=== PATIENT | male | born 1990 | race Caucasian/White ===

== ENCOUNTER 2016-08-19 17:55 | Inpatient (IN) ==
[2016-08-19] MEDS ORDERED: 0.9 % Sodium Chloride 1,000 ML IVC ONE (18:36)
[2016-08-19] MEDS ORDERED: *HR* HYDROmorphone (PF) 1 MG/ML SYRINGE IVP ONE ×2 (19:00→20:32)
[2016-08-19] MEDS ORDERED: Ondansetron 4 MG/2 ML VIAL IVP ONE ×2 (19:00→20:32)
[2016-08-19] MEDS ORDERED: Lidocaine/EPI 1:100k 2% 20 ML VIAL INFILT ONE (19:23)
--- NOTE | 2016-08-19 19:24 | Emergency Department Note ---
Disposition Clinical Impression: Meningismus Disposition: Admitted As Inpatient Condition: Good Referrals: Jesika Sagastume [Primary Care Provider] - Forms: ED Satisfaction Letter General Adult HPI - General Chief complaint: ED Headache Stated complaint: tick bite- possible meningitis Time Seen by Provider: 08/19/16 18:12 Source: patient Limitations: no limitations Nursing Notes Reviewed: Yes Vital Signs Reviewed: Yes - History of Present Illness HPI Narrative: Patient here for evaluation of fever and neck pain. Patient states that he was bitten by a tick on August 03. Patient removed the tick the next day. Patient was working outside the day previously. Patient awoke with tick in his left axilla that over the next several days spread to cause a red erythematous rash. Patient began having headaches and fever this last Friday and they have worsened in severity until yesterday. TMAX at home was 104. He had a rash that started on and then unable to get out of bed secondary to pain and stiffness on Friday. He was evaluated at another emergency department yesterday where they had concern for possible Lyme's disease. Tests were ordered and the patient was given doxycycline and discharged home. The patient's symptoms have not improved since this time the patient is return here secondary to severe pain. Upon exam the patient has severe meningeal signs is he is unwilling to move his neck at all and has pain with slight flexion of his hips. Patient is not altered in any way and is able to hold on a conversation without difficulty. This time the patient's complaints only include pain. Patient did have a fever prior to arrival but he has been taking a lot of ibuprofen at home. Patient states that he was unable to move and get out of bed on Friday but continue to rest at home secondary to thinking he would eventually get over it. Pain Scale: 10 - Related Data Home Medications Medication Instructions Recorded Confirmed Acetaminophen [Tylenol] 1,000 mg PO BID PRN 08/19/16 08/19/16 Doxycycline 100 mg PO BID 08/19/16 08/19/16 Ibuprofen [Motrin] 800 mg PO TID PRN 08/19/16 08/19/16 Allergies Allergy/AdvReac Type Severity Reaction Status Date / Time No Known Allergies Allergy Verified 08/19/16 17:57 All systems ED: reviewed and negative except as stated. Constitutional: Reports: fever, weakness Respiratory: Reports: dyspnea ("feels like breathing cold air even tho its warm outside") Gastrointestinal: Reports: nausea. Denies: abdominal pain, vomiting, diarrhea Musculoskeletal: Reports: neck pain, myalgia Integumentary: Reports: rash Neurological: Reports: headache, weakness, paresthesias (on in the upper extremities) Psychiatric: Denies: anxiety, depression Endocrine: Denies: fatigue, heat or cold intolerance Past Medical History - Past Medical History Medical history: Reports: no medical history Psychiatric history: Reports: no psych history - Social History Smoking Status: Never smoker Smokeless Tobacco Status: No Alcohol use: Reports: occasionally Drug use: Reports: none Physical Exam - General Limitations: no limitations General appearance: alert, in no apparent distress - Head Head exam: atraumatic, normocephalic - Eye Eye exam: Present: normal appearance, PERRL, EOMI - ENT ENT exam: normal exam, mucous membranes dry - Neck Neck exam: Present: tenderness, meningismus. Absent: lymphadenopathy - Chest Chest inspection: Present: normal inspection, rash (slight erythema in right axilla - mostly resolved.). Absent: symmetric chest wall rise, tenderness - Respiratory Respiratory exam: Present: normal lung sounds bilaterally. Absent: respiratory distress, wheezes - Cardiovascular Cardiovascular exam: Present: regular rate, normal rhythm - Abdominal Exam Abdominal exam: Present: soft, Non-Tender - Extremities Exam Extremities exam: Present: normal inspection. Absent: pedal edema - Back Exam Back exam: Present: tenderness, muscle spasm, paraspinal tenderness - Neurological Exam Neurological exam: Present: alert, oriented X3, CN II-XII intact, motor sensory deficit (weakness in extremities 2/2 pain) - Psychiatric Psychiatric exam: Present: normal affect, normal mood - Skin Skin exam: Present: warm, dry, other (slight erythema to left axilla - mostly resolved. ) Course - Reevaluation(s) Reevaluation #1: Lumbar puncture performed per procedure note. Patient tolerated the procedure well. Patient is awake and talking and wanting to eat food. Meal tray ordered. - Consultations Consultation #1: Discussed with Dr. Augustin neurology. He recommends contacting ID for further discussion about possible etiologies. Consultation #2: Discussed with Dr. Stephens, infectious disease. He is concerned that the patient may have Ehrlichiosis vs Anaplama vs Other. Recommend sending IgG and IgM for both of these. He would not be surprised to see leukopenia or thrombocytopenia or elevated LFTs. Recommends continuing with lumbar puncture. Recommend giving doxycycline 100 mg by mouth twice a day until 3 days after symptoms resolve. He is happy to consult on this case with the hospitalist service. The patient does not need isolation unless the lumbar puncture is grossly abnormal. Consultation #3: Discussed with the hospitalist, Dr. Thompson. Pt accepted for admission. Vital Signs Temperature 97.5 F L 08/19/16 17:57 Pulse Rate 73 08/19/16 17:57 Respiratory Rate 16 08/19/16 17:57 Blood Pressure 123/77 08/19/16 17:57 O2 Sat by Pulse Oximetry 96 08/19/16 17:57 Temperature 97.5 F L 08/19/16 17:57 Pulse Rate 73 08/19/16 20:28 Respiratory Rate 20 08/19/16 20:28 Blood Pressure 141/80 08/19/16 20:28 O2 Sat by Pulse Oximetry 98 08/19/16 20:28 Oxygen Delivery Oxygen Delivery Room Air Procedures - Lumbar Puncture Consent Obtained: written consent Time Out Performed: Yes Patient Position: left lateral decubitus Local Anesthetic: lidocaine 2%, with epi Amount of anesthesia used (mL): 10 Spinal Needle Gauge: 22G Interspace Used: L3-L4 Fluid Initially Obtained: clear Additional Comments: 2 attempts were made in the left lateral decubitus were unsuccessful. The patient was moved to the sitting position where it was successful on the second attempt. Complications: none, traumatic tap Medical Decision Making - Lab Data Result diagrams: 08/19/16 19:20 08/19/16 19:20 Lab Results 08/19/16 08/19/16 08/19/16 Range/Units 19:20 19:20 19:20 WBC 11.3 H (4.3-11.1) K/mcL RBC 4.72 (4.19-5.50) M/mcL Hgb 14.0 (12.9-16.9) g/dL Hct 40.0 (37.5-50.1) % MCV 84.7 (83.0-100.0) fL MCH 29.7 (28.0-33.3) pg MCHC 35.0 (31.6-35.5) g/dL RDW 12.3 (11.5-14.5) % Plt Count 215 (140-400) K/mcL MPV 8.1 L (9.4-12.4) fL Immature Gran % 0.3 (0-4) % Seg Neutrophils % 65.8 % Lymphocytes % 22.2 % Monocytes % 8.4 % Eosinophils % 2.9 % Basophils % 0.4 % Neutrophils # 7.4 (1.6-8.9) K/mcL Lymphocytes # 2.5 (0.6-4.6) K/mcL Monocytes # 1.0 (0.0-1.3) K/mcL Eosinophils # 0.3 (0.0-0.6) K/mcL Basophils # 0.1 (0.0-0.2) K/mcL PT 12.7 H (9.4-12.1) Seconds INR 1.2 APTT 31.4 (26.0-36.0) Seconds Sodium 140 (136-145) mEq/L Potassium 3.8 (3.5-4.5) mEq/L Chloride 107 (98-109) mEq/L Carbon Dioxide 24 (19-29) mEq/L BUN 10 (8-26) mg/dL Creatinine 0.93 (0.72-1.25) mg/dL Est GFR ( Amer) > 60 (> 60) Est GFR (Non-Af Amer) > 60 (> 60) BUN/Creatinine Ratio 11 (6-26) Glucose 89 (70-99) mg/dL Calculated Osmolality 289 (280-300) Calcium 9.3 (8.6-10.8) mg/dL Total Bilirubin 0.7 (0.2-1.2) mg/dL Direct Bilirubin 0.3 (0.0-0.5) mg/dL Indirect Bilirubin 0.4 (0.0-1.2) mg/dL AST 18 (5-34) Units/L ALT 23 (0-55) Units/L Alkaline Phosphatase 79 (38-126) Units/L Creatine Kinase 64 (30-200) Units/L Troponin I (0-0.03) ng/mL Serum Total Protein 7.5 (6.0-8.3) g/dL Albumin 3.5 (3.5-5.0) g/dL Globulin 4.0 H (2.4-3.5) g/dL Albumin/Globulin Ratio 0.9 L (1.1-2.2) CSF Volume mL CSF Appearance (Clear) CSF Color (Colorless) CSF RBC (0.000 - 0.002) M/mcL CSF Tot Nucleated Cells (0-5) TNC/mcL CSF Glucose (40-70) mg/dL CSF Xanth Comm (Not Observe) CSF Total Protein (15-45) mg/dL 08/19/16 08/19/16 Range/Units 19:20 20:15 WBC (4.3-11.1) K/mcL RBC (4.19-5.50) M/mcL Hgb (12.9-16.9) g/dL Hct (37.5-50.1) % MCV (83.0-100.0) fL MCH (28.0-33.3) pg MCHC (31.6-35.5) g/dL RDW (11.5-14.5) % Plt Count (140-400) K/mcL MPV (9.4-12.4) fL Immature Gran % (0-4) % Seg Neutrophils % % Lymphocytes % % Monocytes % % Eosinophils % % Basophils % % Neutrophils # (1.6-8.9) K/mcL Lymphocytes # (0.6-4.6) K/mcL Monocytes # (0.0-1.3) K/mcL Eosinophils # (0.0-0.6) K/mcL Basophils # (0.0-0.2) K/mcL PT (9.4-12.1) Seconds INR APTT (26.0-36.0) Seconds Sodium (136-145) mEq/L Potassium (3.5-4.5) mEq/L Chloride (98-109) mEq/L Carbon Dioxide (19-29) mEq/L BUN (8-26) mg/dL Creatinine (0.72-1.25) mg/dL Est GFR ( Amer) (> 60) Est GFR (Non-Af Amer) (> 60) BUN/Creatinine Ratio (6-26) Glucose (70-99) mg/dL Calculated Osmolality (280-300) Calcium (8.6-10.8) mg/dL Total Bilirubin (0.2-1.2) mg/dL Direct Bilirubin (0.0-0.5) mg/dL Indirect Bilirubin (0.0-1.2) mg/dL AST (5-34) Units/L ALT (0-55) Units/L Alkaline Phosphatase (38-126) Units/L Creatine Kinase (30-200) Units/L Troponin I 0.01 (0-0.03) ng/mL Serum Total Protein (6.0-8.3) g/dL Albumin (3.5-5.0) g/dL Globulin (2.4-3.5) g/dL Albumin/Globulin Ratio (1.1-2.2) CSF Volume 3.5 mL CSF Appearance Clear (Clear) CSF Color Colorless (Colorless) CSF RBC < 0.002 (0.000 - 0.002) M/mcL CSF Tot Nucleated Cells 10 H (0-5) TNC/mcL CSF Glucose 54 (40-70) mg/dL CSF Xanth Comm Not Observed (Not Observe) CSF Total Protein 41 (15-45) mg/dL Critical Care Time Critical Care Time: Yes Total Critical Care Time: 35 Attestation: Critical care time spent in medical management as well as consultation with infectious disease and hospitalist. Also consult was made to neurology. Attestation Statement - Attestation Attestation: I examined this patient and my medical decision-making was reviewed with the [employer]'/PA/Advanced Practice Nurse/Resident Physician. I agree with the documented findings, disposition and treatment plan as described except to the extent set forth below. I was able to help with Dr. Chandra in the lumbar puncture. Patient tolerated procedure well with no consultations. see procedure note.
[2016-08-19 19:30] LABS: Basophils # 0.1 K/mcL (0.0-0.2); Basophils % 0.4 %; Eosinophils # 0.3 K/mcL (0.0-0.6); Eosinophils % 2.9 %; Immature Granulocytes % 0.3 % (0-4); Lymphocytes # 2.5 K/mcL (0.6-4.6); Lymphocytes % 22.2 %; Mean Corpuscular Hemoglobin 29.7 pg (28.0-33.3); Mean Corpuscular Volume 84.7 fL (83.0-100.0); Mean Platelet Volume 8.1 fL (9.4-12.4); Monocytes % 8.4 %; Neutrophils # 7.4 K/mcL (1.6-8.9); Platelet Count 215 K/mcL (140-400); Red Blood Count 4.72 M/mcL (4.19-5.50); Red Cell Distribution Width 12.3 % (11.5-14.5); Segmented Neutrophils % 65.8 %
[2016-08-19 19:43] LABS: INR 1.2; Prothrombin Time 12.7 Seconds (9.4-12.1)
[2016-08-19 19:45] LABS: Activated Partial Thrombo Time 31.4 Seconds (26.0-36.0)
[2016-08-19 19:48] LABS: Alanine Aminotransferase 23 Units/L (0-55); Albumin 3.5 g/dL (3.5-5.0); Albumin/Globulin Ratio 0.9 (1.1-2.2); Alkaline Phosphatase 79 Units/L (38-126); Aspartate Amino Transferase 18 Units/L (5-34); BUN/Creatinine Ratio 11 (6-26); Bilirubin,Direct 0.3 mg/dL (0.0-0.5); Bilirubin,Indirect 0.4 mg/dL (0.0-1.2); Bilirubin,Total 0.7 mg/dL (0.2-1.2); Blood Urea Nitrogen 10 mg/dL (8-26); Calcium 9.3 mg/dL (8.6-10.8); Carbon Dioxide 24 mEq/L (19-29); Chloride 107 mEq/L (98-109); Creatine Kinase 64 Units/L (30-200); Glucose 89 mg/dL (70-99); Osmolality,Calculated 289 (280-300); Potassium 3.8 mEq/L (3.5-4.5); Sodium 140 mEq/L (136-145); Total Protein 7.5 g/dL (6.0-8.3); eGFR For African Americans > 60 (> 60); eGFR For Non-African Americans > 60 (> 60)
[2016-08-19] MEDS ORDERED: Doxycycline 100 MG CAPSULE PO ONE (20:26)
[2016-08-19 20:41] LABS: Red Blood Cell,CSF < 0.002 M/mcL
[2016-08-19 21:14] LABS: Glucose,CSF 54 mg/dL (40-70); Total Protein,CSF 41 mg/dL (15-45)
[2016-08-19 21:16] LABS: Appearance,CSF Clear (Clear)
[2016-08-19 21:34] LABS: Lymphocytes,CSF 42.9 %; Monocytes,CSF 14.3 %
[2016-08-20] MEDS ORDERED: *HR* HYDROmorphone (PF) 1 MG/ML SYRINGE IVP PRN (00:43)
[2016-08-20] MEDS ORDERED: Naloxone 0.4 MG/ML INJ IVP PRN (00:43)
[2016-08-20] MEDS ORDERED: Acetaminophen 325 MG TABLET PO PRN (00:43)
[2016-08-20] MEDS: Ondansetron 4 MG/2 ML VIAL IVP PRN ×3 (01:07→17:33)
--- NOTE | 2016-08-20 01:59 | Internal Med History&Physical ---
<Kevin Kenyon - Last Filed: 08/20/16 01:51> Date of Encounter: 08/20/16 Time of Encounter: 01:52 Assessment and Plan (1) Meningitis Current visit: Yes Status: Acute Likely related to tick borne illness with Lyme disease, ehrlichiosis, anaplasmosis at the top of the differential. Lumbar puncture was performed that shows 10 nucleated cells with 42.9% neutrophils and 42.9% lymphocytes, glucose and total protein were normal. CSF cultures are pending serologic testing for Lyme disease, ehrlichiosis, anaplasmosis have been ordered. Head CT is normal. He had been started on doxycycline 100 mg twice a day. We will continue this. Infectious disease Society of [place] guidelines do recommend Rocephin 2 g daily for early disseminated Lyme's disease with neurologic involvement so this is been initiated. Given the possibility of disseminated Lyme and patient complaints of chest pain and EKG was performed which showed normal sinus rhythm with no AV block. We will also treat the patient's pain symptomatically. Infectious disease has been consulted. (2) DVT prophylaxis Current visit: Yes Status: Acute Heparin 5000 units subcutaneous twice a day Internal Medicine - H&P: HPI Chief complaint: Neck Stiffness Admitted From: Emergency Dept Plans for Post Hospital Care: Home History of present illness: Mr. Ruiz is a 25 year old male with no significant medical history presents with fever, headache, neck stiffness. Patient states that on August 03 in the evening he was outside cleaning brush between 5 and 7 PM. The next morning at approximately 7 AM he noticed a tick in his axillary area which he removed. He noticed a red circular rash around the area at that time, denies bulls-eye looking rash. Patient states that his rash persisted and last Friday he developed a headache. On Friday his headache continued and the pain was also in his neck. On and Friday his symptoms persisted and he also had dyspnea, chest pain, and back pain. Patient states on Friday when he woke up he felt extremely stiff all over and felt like he could not move without severe pain. Patient states he was taking ibuprofen regularly to help with these symptoms. Patient had similar symptoms on Friday and went to an outside emergency department and was given doxycycline. Patient states once he started taking the doxycycline he discontinued taking ibuprofen and developed a fever of 104. Patient did not feel any better today and presented to our emergency department. Patient continues to report significant neck pain and stiffness, headache, photophobia. Patient reports that he has had tick bites 100s of times and never had similar symptoms. He reports his most recent tick bite was about a month ago. He denies any sick contacts or travel. Past Med Surg Social Fam HX - Past Medical History Medical history: no medical history Psychiatric history: no psych history - Past Surgical History Surgical History: no surgical history - Social History Smoking Status: Never smoker Smokeless Tobacco Status: No Alcohol use: occasionally Drug use: none - Family History Mother Hx Family Cancer: Yes (ovarian) Father Hx Family Neurologic Disorders: Yes (jenna) Internal Medicine - H&P: Meds Acetaminophen [Tylenol] 1,000 mg PO BID PRN 08/19/16 [History] Doxycycline 100 mg PO BID 08/19/16 [History] Ibuprofen [Motrin] 800 mg PO TID PRN 08/19/16 [History] Allergies No Known Allergies Allergy (Verified 08/19/16 17:57) All Systems PM: A 10-system review of systems was performed and is negative for pertinent findings except as documented above in the HPI. - Constitutional Constitutional: chills, fever(s) - EENT Eyes: floaters, photophobia, no blurry vision Nose, mouth and throat: neck pain, no sinus pain, no sinus pressure, no throat swelling - Cardiovascular Cardiovascular ROS IM: chest pain, dyspnea, no edema, no palpitations, no syncope - Respiratory Respiratory: cough, dyspnea, no wheezing, no chest congestion, no excessive phlegm production, no change in phlegm color - Gastrointestinal Gastrointestinal: no abdominal pain, no diarrhea, no nausea, no vomiting - Genitourinary Genitourinary ROS male: no dysuria, no hematuria - Musculoskeletal Musculoskeletal ROS IM: myalgias, neck pain - Integumentary Integumentary IM: erythema, new lesions, pruritus, rash - Neurological Neurological ROS: headache(s), no confusion, no convulsions, no focal weakness, no numbness, no tingling - Endocrine Endocrine IM: no flushing - Constitutional Vitals: Temp Pulse Resp BP Pulse Ox 97.9 F 82 16 125/82 97 08/19/16 22:19 08/19/16 22:19 08/19/16 22:19 08/19/16 22:19 08/19/16 22:19 General appearance: Present: A&O X 3, pleasant Exam: Appears uncomfortable. - Head Head exam: Present: atraumatic, normal inspection, normocephalic - Eye Eye exam: Present: EOMI (Patient does report pain with eye movements), PERRL - ENT ENT exam: Present: mucous membranes moist - Neck Neck exam general surgery: Present: nuchal rigidity (Significant), trachea midline - Respiratory Respiratory exam: Present: CTAB. Absent: rales, rhonchi, wheezes - Cardiovascular Cardiovascular exam: Present: RRR. Absent: gallop, rubs, systolic murmur - Extremities Exam Extremities exam: Present: warm. Absent: pedal edema, tenderness - Neurological Exam Neurological exam: Present: alert, CN II-XII intact, oriented X3, no focal deficits Additional comments: Kernig's and Brudzinski's sign were not performed due to the patient stating that these tests were performed in the emergency department and the patient had significant pain with these tests and the patient asked that these not be performed. - Psychiatric Psychiatric exam: Present: normal affect, normal mood - Skin Skin exam: Present: rash (Patient had a circular erythematous area, approximately 6 cm in diameter, in the left anterior axillary area. No break in the skin was noted. There is no bleeding or drainage noted. No fluctuation or induration noted.) Internal Med - H&P Results - Labs CBC & Chem 7: 08/19/16 19:20 08/19/16 19:20 <Angel Thompson - Last Filed: 08/20/16 07:02> Date of Encounter: 08/20/16 Assessment and Plan (1) Headache Current visit: Yes Status: Acute Due to Meningitis. Pain relief and treat meningitis Qualifiers: Headache type: unspecified Headache chronicity pattern: acute headache Intractability: intractable Qualified Code(s): R51 - Headache Internal Medicine - H&P: HPI History of present illness: Mr. Ruiz is a 25 year old male All Systems PM: A 10-system review of systems was performed and is negative for pertinent findings except as documented above in the HPI. - Constitutional Vitals: Temp Pulse Resp BP Pulse Ox 97.4 F L 62 17 117/75 96 08/20/16 04:21 08/20/16 04:21 08/20/16 04:21 08/20/16 04:21 08/20/16 04:21 Internal Med - H&P Results - Labs CBC & Chem 7: 08/20/16 05:19 08/20/16 05:19 Labs: Short CBC 08/20/16 Range/Units 05:19 WBC 8.0 (4.3-11.1) K/mcL Hgb 13.8 (12.9-16.9) g/dL Hct 40.8 (37.5-50.1) % Plt Count 258 (140-400) K/mcL Neutrophils # 3.9 (1.6-8.9) K/mcL BMP 08/20/16 05:19 Sodium 141 Potassium 4.0 Chloride 106 Carbon Dioxide 26 BUN 10 Creatinine 1.04 Glucose 77 Calcium 9.3 - Attending Attestation I performed history and physical examination of the patient and discussed management with the Resident. I reviewed the Residents note and agree with documented findings and plan of care. 25 Y/M with no significant medical history presents with fever, headache, neck stiffness. Had tick bite about 2 weeks ago. Last week, he developed neck pain, followed by headache and fever. He was evaluated in the ER and LP showed leucocytes. CT head showed no acute intracranial abnormality. O/E: neck stiffness. No gross focal neurological deficits. Cardiac: RRR, lungs: CTA Labs and CT head results reviewed. A/P: Headache / Meningitis: Lyme disease versus Ehrlichiosis. Treat with doxycycline; ceftriaxone. ID consult
[2016-08-20] MEDS: Ibuprofen 800 MG TABLET PO PRN (04:15)
[2016-08-20] MEDS: *HR* HYDROmorphone (PF) 1 MG/ML SYRINGE IVP PRN ×6 (05:16→21:34)
[2016-08-20] MEDS: *HR* Promethazine 25 MG/ML VIAL IVP PRN ×3 (06:01→21:34)
[2016-08-20 06:16] LABS: Basophils % 0.5 %; Eosinophils # 0.3 K/mcL (0.0-0.6); Eosinophils % 4.2 %; Hematocrit 40.8 % (37.5-50.1); Hemoglobin 13.8 g/dL (12.9-16.9); Immature Granulocytes % 0.2 % (0-4); Lymphocytes % 37.2 %; Mean Corpuscular HGB Conc 33.8 g/dL (31.6-35.5); Mean Corpuscular Hemoglobin 29.1 pg (28.0-33.3); Mean Corpuscular Volume 85.9 fL (83.0-100.0); Mean Platelet Volume 8.5 fL (9.4-12.4); Monocytes # 0.7 K/mcL (0.0-1.3); Monocytes % 9.2 %; Neutrophils # 3.9 K/mcL (1.6-8.9); Platelet Count 258 K/mcL (140-400); Red Blood Count 4.75 M/mcL (4.19-5.50); Red Cell Distribution Width 12.4 % (11.5-14.5); Segmented Neutrophils % 48.7 %
[2016-08-20] MEDS: *HR* Heparin 5,000 UNIT/ML VIAL SQ SCH ×2 (06:29→17:32)
[2016-08-20 06:31] LABS: BUN/Creatinine Ratio 10 (6-26); Blood Urea Nitrogen 10 mg/dL (8-26); Calcium 9.3 mg/dL (8.6-10.8); Carbon Dioxide 26 mEq/L (19-29); Chloride 106 mEq/L (98-109); Glucose 77 mg/dL (70-99); Osmolality,Calculated 290 (280-300); Sodium 141 mEq/L (136-145); eGFR For African Americans > 60 (> 60); eGFR For Non-African Americans > 60 (> 60)
[2016-08-20] MEDS: Doxycycline 100 MG CAPSULE PO SCH ×2 (08:25→21:04)
--- NOTE | 2016-08-20 09:38 | Event Note ---
Date of Encounter: 08/20/16 Time of Encounter: 09:36 patient complaining of severe headache, neck stiffness and pain. Patient was admitted last night and currently being treated for bacterial meningitis. Physical exam: Moderate distress due to pain, heart is regular with normal S1- S2. Lungs are clear. Patient is awake alert oriented 3. Pupils equal round reactive to light. Extraocular movements intact. There is positive Deafness. Plan: Continue with ceftriaxone and doxycycline. Follow-up with infectious disease service. Increased Dilaudid to 1 mg every 2 hours as needed for severe pain.
[2016-08-20 10:53] LABS: Bilirubin,Urine Negative (Negative); Blood,Urine Negative (Negative); Color,Urine Yellow (Yellow); Glucose,Urine (UA) Normal (Normal); Ketones,Urine Negative (Negative); Leukocyte Esterase,Urine Negative (Negative); Nitrite,Urine Negative (Negative); PH,Urine 5.5 pH Units (5.0-8.0); Protein,Urine Negative (Neg-Trace); Specific Gravity,Urine 1.029 (1.010-1.025); Urobilinogen,Urine Normal (Normal)
[2016-08-20 10:55] LABS: Bacteria,Urine None Seen per hpf (None-Few); Hyaline Casts,Urine None Seen per lpf (None-Few); Squamous Epithelial Cell,Urine Many per lpf (None-Few)
[2016-08-20 10:56] LABS: Clarity,Urine Clear (Clear)
--- NOTE | 2016-08-20 17:33 | Electrocardiograph Report ---
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
--- NOTE | 2016-08-20 17:54 | Infectious Disease Consult ---
Date of Encounter: 08/20/16 Time of Encounter: 17:52 Assessment and Plan (1) Tick borne fever Status: Acute Assessment and plan: tick removed about 2-3 weeks ago could still be within the incubation period no other lab findings suggesting tick borne illness no rash present started on doxycyline no need to check ehrlichia or anaplasma titers since patient likely will be done with treatment prior to labs resulting continue doxy, monitor labs (2) Arthralgia Status: Acute Qualifiers: Joint pain location: unspecified Qualified Code(s): M25.50 - Pain in unspecified joint (3) Chest tightness Status: Acute Assessment and plan: i'm not sure what's causing it, consider CT chest, defer to hospitalist team (4) Meningitis Status: Acute Assessment and plan: suggesting aseptic meningitis consider d/cing rocephin d/c droplet isolation symptoms might persist for few more days if this is due to tick borne illness (5) Headache Status: Acute Qualifiers: Headache type: unspecified Headache chronicity pattern: acute headache Intractability: intractable Qualified Code(s): R51 - Headache Infectious Disease HPI - Data of Consult Patient: new to practice Consult date: 08/20/16 Requesting Physician: Shahab Babb MD Primary Care Provider: Jesika Sagastume - Consult Narrative Reason for consult: tick borne illness History of present illness: Mr. Ruiz is a 25 year old male Patient is 25-year-old gentleman with them no obvious past medical history who was admitted for possible tick borne illness. Were consulted to make further evaluation. Patient is a 25-year-old gentleman lives at home with his and 2 children ages 6 and 4 and works at the [employer] came into the emergency room after feeling very weak, myalgia, arthralgia, fever headache neck stiffness and photophobia. Patient tells me that back on August 04 she noted a tick under his left armpit. The tick was engorged was removed and there was some erythema and surrounding area. Patient removed the taken was feeling okay for a while. Patient tells me about 10 days after around August 13 or a little bit tired had some headache and just did not feel well. The day after he was having some neck pain and some back pain and some joint pain. The headache continued to get worse in the neck stiffness. Patient told me that he was having severe joint arthralgia that he wasnt able to really move his arms or legs. He was having hard time getting up without help. Patient seek attention at [facility] where they checked him for Lyme titer and discharged him home on doxycycline on Friday. Patient tells me that Friday was the worse he ever felt. On Friday he was still feeling bad but he had slight improvement. He continued to have the headache and the neck stiffness aching to the ER for evaluation. I did receive a phone call from the ER concerned about tick bite and theyre asking for recommendations. Since admission patient had no SIRS criteria, they did an LP on him which showed pleocytosis with 10 nucleated cells with 42% neutrophils and 42% lymphocytes and 14% monocytes glucose and protein were within normal limits. Patient also had a UA done which was negative rest of the labs on the showed some leukocytosis at 11,000 with normal differential. Patient had no bands no leukopenia no thrombocytopenia no elevated LFTs to suggest tickborne illness. On further questioning patient tells me that both of his daughters are healthy a go to school but he hadnt had any URI symptoms or any viral infection. Patient is sexually active with his but he is only sexually active with his and denies any extramarital sexual exposure. Patient also denies any history of STDs or syphilis. Patient denies any travel outside of [place] in the recent past. CC: Shahab Babb MD Past Med Surg Social Fam HX - Past Medical History Medical history: no medical history Psychiatric history: no psych history - Past Surgical History Surgical History: no surgical history - Social History Smoking Status: Never smoker Smokeless Tobacco Status: No Alcohol use: occasionally Drug use: none - Family History Mother Hx Family Cancer: Yes (ovarian) Father Hx Family Neurologic Disorders: Yes (jenna) Infectious Disease-CN:Meds Acetaminophen [Tylenol] 1,000 mg PO BID PRN 08/19/16 [History] Doxycycline 100 mg PO BID 08/19/16 [History] Ibuprofen [Motrin] 800 mg PO TID PRN 08/19/16 [History] Allergies No Known Allergies Allergy (Verified 08/19/16 17:57) Review of systems: 10 point review of systems done, pertinent negatives mentioned in the history of present illness. Patient still complains of: nausea Chest tightness Joint pain But he said overall everything is significantly improved. Exam - Constitutional Vitals: Temp Pulse Resp BP Pulse Ox 97.4 F L 69 16 126/86 96 08/20/16 15:21 08/20/16 15:21 08/20/16 15:21 08/20/16 15:21 08/20/16 15:21 General appearance: no acute distress, no febrile - Head Head exam: Present: atraumatic, normocephalic - Eye Eye exam: Present: EOMI, PERRL, sclera anicteric Additional comments: no conjunctival hemorrhage - ENT ENT exam: Present: mucous membranes dry, normal oropharynx - Neck Neck exam: Present: full ROM. Absent: meningismus - Respiratory Respiratory exam: Present: CTAB. Absent: wheezes - Cardiovascular Cardiovascular exam: Present: RRR, +S1, +S2 - GI/Abdominal GI/Abdominal exam: Present: normal bowel sounds, soft. Absent: tenderness - Extremities Exam Extremities exam: Present: full ROM, normal inspection. Absent: joint swelling , pedal edema, tenderness Additional comments: some pain on active range of motion of both shoulders - Back Exam Back exam: Absent: CVA tenderness (L), CVA tenderness (R), vertebral tenderness - Neurological Exam Neurological exam: Present: alert, oriented X3. Absent: no focal deficits - Psychiatric Psychiatric exam: Present: normal affect, normal mood - Skin Skin exam: Present: normal color. Absent: rash Infectious Disease CN: Results - Labs CBC & Chem 7: 08/20/16 05:19 08/20/16 05:19 Serology: Serology 08/20/16 Range/Units 10:30 Urine Color Yellow (Yellow) Urine Clarity Clear (Clear) Urine pH 5.5 (5.0-8.0) pH Units Ur Specific [place] 1.029 H (1.010-1.025) Urine Protein Negative (Neg-Trace) mg/dL Urine Glucose (UA) Normal (Normal) mg/dL Urine Ketones Negative (Negative) mg/dL Urine Blood Negative (Negative) Urine Nitrite Negative (Negative) Urine Bilirubin Negative (Negative) Urine Urobilinogen Normal (Normal) mg/dL Ur Leukocyte Esterase Negative (Negative) Urine Microscopic RBC 3-5 H (0-3) per hpf Ur Squamous Epith Cells Many H (None-Few) per lpf Urine Bacteria None Seen (None-Few) per hpf Hyaline Casts None Seen (None-Few) per lpf Ur Culture Indicated? NO (NO) Consult Discharge Plan - Plan Referrals: Jesika Sagastume [Primary Care Provider] -
[2016-08-21] MEDS: Ondansetron 4 MG/2 ML VIAL IVP PRN ×3 (00:56→20:28)
[2016-08-21] MEDS: *HR* HYDROmorphone (PF) 1 MG/ML SYRINGE IVP PRN ×3 (00:56→20:28)
[2016-08-21] MEDS: Ibuprofen 800 MG TABLET PO PRN ×2 (04:34→19:47)
[2016-08-21] MEDS: *HR* Heparin 5,000 UNIT/ML VIAL SQ SCH ×2 (06:00→19:48)
[2016-08-21 06:51] LABS: Hematocrit 38.6 % (37.5-50.1); Mean Corpuscular HGB Conc 33.7 g/dL (31.6-35.5); Mean Corpuscular Hemoglobin 29.2 pg (28.0-33.3); Mean Corpuscular Volume 86.7 fL (83.0-100.0); Mean Platelet Volume 8.3 fL (9.4-12.4); Platelet Count 293 K/mcL (140-400); Red Blood Count 4.45 M/mcL (4.19-5.50); Red Cell Distribution Width 12.5 % (11.5-14.5)
[2016-08-21 07:05] LABS: BUN/Creatinine Ratio 11 (6-26); Blood Urea Nitrogen 11 mg/dL (8-26); Calcium 9.4 mg/dL (8.6-10.8); Carbon Dioxide 26 mEq/L (19-29); Chloride 106 mEq/L (98-109); Glucose 93 mg/dL (70-99); Osmolality,Calculated 289 (280-300); Potassium 3.7 mEq/L (3.5-4.5); Sodium 140 mEq/L (136-145); eGFR For African Americans > 60 (> 60); eGFR For Non-African Americans > 60 (> 60)
[2016-08-21 08:10] LABS: Eosinophils # 0.4 K/mcL (0.0-0.6); Lymphocytes # 3.3 K/mcL (0.6-4.6); Monocytes # 0.3 K/mcL (0.0-1.3); Neutrophils # 2.9 K/mcL (1.6-8.9); Reactive Lymphocytes Present (Not Present)
[2016-08-21 08:11] LABS: Platelet Estimate Normal (Normal)
[2016-08-21] MEDS: Doxycycline 100 MG CAPSULE PO SCH ×2 (08:48→19:47)
[2016-08-21 11:01] LABS: C-Reactive Protein 66 mg/L (Less than 5)
[2016-08-21] MEDS: *HR* Promethazine 25 MG/ML VIAL IVP PRN (12:38)
[2016-08-21] MEDS ORDERED: CefTRIAXone 2,000 MG VIAL ONE (18:25)
[2016-08-21] MEDS ORDERED: D5% in Water (Mini-Bag+) 100 ML IVPB ONE (18:27)
[2016-08-22] MEDS: *HR* HYDROmorphone (PF) 1 MG/ML SYRINGE IVP PRN ×2 (00:25→09:39)
[2016-08-22] MEDS: *HR* Promethazine 25 MG/ML VIAL IVP PRN (00:26)
[2016-08-22] MEDS: *HR* Heparin 5,000 UNIT/ML VIAL SQ SCH (06:02)
[2016-08-22] MEDS: Ibuprofen 800 MG TABLET PO PRN (07:13)
[2016-08-22] MEDS: Doxycycline 100 MG CAPSULE PO SCH (09:38)
[2016-08-22] MEDS: Ondansetron 4 MG/2 ML VIAL IVP PRN (09:42)
--- NOTE | 2016-08-22 10:32 | Discharge Summary ---
Date of Encounter: 08/22/16 Time of Encounter: 08:50 - Discharge Diagnosis (1) Tick borne fever Priority: Primary Status: Acute (2) Lyme disease Priority: Secondary Status: Acute (3) Meningitis Priority: Secondary Status: Acute (4) Headache Priority: Secondary Status: Acute Qualifiers: Headache type: unspecified Headache chronicity pattern: acute headache Intractability: intractable Qualified Code(s): R51 - Headache (5) Arthralgia Priority: Secondary Status: Acute Qualifiers: Joint pain location: unspecified Qualified Code(s): M25.50 - Pain in unspecified joint (6) Chest tightness Priority: Secondary Status: Acute - Discharge Medications Prescriptions: OxyCODONE/APAP 5/325 [Percocet 5/325 MG] 1 each PO Q4HR PRN #14 tablet PRN Reason: Moderate Pain Omeprazole 20 mg PO DAILY #30 tablet.dr Ayala Medications: Acetaminophen [Tylenol] 1,000 mg PO BID PRN 08/19/16 [History] Ibuprofen [Motrin] 800 mg PO TID PRN 08/19/16 [History] Doxycycline 100 mg PO BID #34 08/22/16 [Rx] Omeprazole 20 mg PO DAILY #30 tablet. 08/22/16 [Rx] OxyCODONE/APAP 5/325 [Percocet 5/325 MG] 1 each PO Q4HR PRN #14 tablet 08/22/16 [Rx] Allergies/Adverse Reactions: Allergies No Known Allergies Allergy (Verified 08/19/16 17:57) Procedures/tests Complete & Pending: Procedures Performed prior 72 hours Category Date Time Status EKG [ECG 12 lead ECG] [ECG] Stat Y 08/20/16 00:52 Completed Date of admission: 08/19/16 23:58 Primary care physician: Jesika Sagastume Consults: 08/19/16 21:25 Consult to Infectious Diseases [CONS] Routine Consulting Provider: Infectious Disease Luana Reason for Consult: Meningismus Call Completed: Yes Discharging clinician: Jessica Jerez Anticipated date of discharge: 08/22/16 - Patient Status Disposition: Home, Self-Care Condition: Good Functional capacity at discharge: independent ambulation Overall status at discharge: patient is progressing back to baseline - Discharge Instructions Follow Up With: Jesika Sagastume [Primary Care Provider] - 08/29/16 10:00 am Additional Instructions: With infectious disease in 1-2 weeks - Diet and Activity Activity: resume usual activities as tolerated Diet: advance to your usual diet, regular diet Hospital course: Mr. Ruiz is a 26 year old male patient who has no significant past medical history presented with complaints of fever and headache and neck stiffness. Patient up and he had a tick bite 2 weeks prior and he had removed it. He apparently had a red-colored rash in that area immediately following the bite. The rash remained persistent and since one week he began to have headache and neck pain. He finally went to an ER on 08/18/16 when he was prescribed doxycycline. He began to take doxycycline that day but developed a fever that night and so came to the ER again here. Workup in the ER included a lumbar puncture due to presence of neck stiffness. This showed findings suggestive of aseptic meningitis. He was started on treatment for this with Rocephin intravenously due to possibility of disseminated Lyme disease. He was evaluated by infectious disease and recommended to continue IV Rocephin for 2 weeks and to continue doxycycline orally. Patient has been having significant arthralgia over here requiring narcotic pain medications to control his symptoms. However he feels much better and wishes to go home today. His EKG did not show any abnormal rhythms. He will follow up with infectious disease after discharge. He will be discharged once he has home IV antibiotics arranged. - Time Spent with Patient Total time spent providing and/or coordinating discharge services: Greater than 30 minutes (35 min) - Constitutional Vitals: Temp Pulse Resp BP Pulse Ox 97.7 F 54 14 122/71 97 08/22/16 08:07 08/22/16 08:07 08/22/16 08:07 08/22/16 08:07 08/22/16 08:07 General appearance: Present: cooperative, A&O X 3, pleasant, answers questions appropriately - Eye Eye exam: Present: conjuntiva pink, sclera anicteric Additional comments: Mild photophobia - Neck Neck exam general surgery: Absent: lymphadenopathy Additional comments: Neck pain - Respiratory Respiratory exam: Present: CTAB. Absent: accessory muscle use, rales, rhonchi, wheezes - Cardiovascular Cardiovascular exam: Present: RRR, +S1, +S2. Absent: diastolic murmur, gallop, rubs, systolic murmur - GI/Abdominal GI/Abdominal exam: Present: normal bowel sounds, soft, no peritoneal signs. Absent: distended, tenderness - Neurological Exam Neurological exam: Present: alert, oriented X3, no focal deficits. Absent: facial droop, speech deficit - Skin Skin exam: Present: dry, intact - Attending Attestation This document has been at least partially created by Intoo recognition technology by Dr. Jerez. Errors in grammar, wording or other phrases may exist. If errors are found after the documentation is signed, they will be addressed individually in the addendum section of this document when appropriate.
[2016-08-22] MEDS: *HR* OxyCODONE/APAP 5/325 TABLET PO PRN ×2 (12:58→17:20)
--- NOTE | 2016-08-22 14:10 | Electrocardiograph Report ---
[address] [address] Test Date: 2016-08-21 Pat Name: Renzo Ruiz Department: 113 Room: 3B Gender: M Patient Ombudsperson: CLAUDINE : 1990 Requested By: Jessica Jerez Order Number: [id number] Reading MD: Lionel Roper MD Measurements Intervals [place] Rate: 61 P: 33 [place]: 145 QRS: 12 QRSD: 91 T: 20 QT: 398 QTc: 402 Interpretive Statements SINUS RHYTHM Electronically Signed On 08-22-2016 14:08:59 EDT by Lionel Roper MD
--- NOTE | 2016-08-22 15:02 | Infectious Disease Progress No ---
Date of Encounter: 08/23/16 Time of Encounter: 14:57 - Assessment and Plan (1) Lyme disease Status: Acute Early, disseminated based on clinical picture. Lyme antibody positive. Western blot test pending. EKG completed and interpreted by cardiology as NSR. Has been on oral doxycycline while hospitalized and has noticed a huge improvement in symptoms. Continue doxycycline 100mg PO BID. Start Rocephin 2 grams IV daily. EPIV placed 08/22/16. Duration of treatment depends on the clinical picture, but likely 14 days. Treat through 09/05/16. Get labs in 1 week: CBC, CMP. Weekly EPIV care per protocol. guest services agent consulted for home health setup. Follow up with ID 09/02/16 at 1300. (2) Tick borne fever Status: Acute Per patient history, tick removed from the left axilla 2-3 weeks ago. The patient has been afebrile since admission, but reports fever of 104 at home. (3) Meningitis Status: Acute Status post LP. TNC 10 with 42% neutrophils and 42% lymphocytes. Glucose and protein normal. Likely secondary to Lyme. Continue supportive care. (4) Headache Status: Acute Secondary to aseptic meningitis. Continue supportive care. Qualifiers: Headache type: unspecified Headache chronicity pattern: acute headache Intractability: intractable Qualified Code(s): R51 - Headache (5) Arthralgia Status: Acute Qualifiers: Joint pain location: unspecified Qualified Code(s): M25.50 - Pain in unspecified joint (6) Chest tightness Status: Acute - Subjective Interval history: Patient seen and examined. No acute events noted overnight. Patient states that overall he feels much better than when he came in, although he continues to have some generalized discomfort in his joints and muscles. He also reports a slight headache currently. He denies any fevers or chills or rigors. Reports chest muscle pain and tightness and states it is sometimes difficult for him to take a deep breath. He denies cough. He denies nausea, vomiting, or diarrhea. States he finally got his appetite back yesterday and has tolerated both breakfast and lunch well today. He denies any new pain or arthralgias. Denies oral thrush or new skin lesions. He denies urinary complaints. Infect Dis PN-Objective Data - Labs CBC & Chem 7: 08/21/16 05:33 08/21/16 05:33 Cultures: Serology 08/20/16 Range/Units 10:30 Urine Color Yellow (Yellow) Urine Clarity Clear (Clear) Urine pH 5.5 (5.0-8.0) pH Units Ur Specific [place] 1.029 H (1.010-1.025) Urine Protein Negative (Neg-Trace) mg/dL Urine Glucose (UA) Normal (Normal) mg/dL Urine Ketones Negative (Negative) mg/dL Urine Blood Negative (Negative) Urine Nitrite Negative (Negative) Urine Bilirubin Negative (Negative) Urine Urobilinogen Normal (Normal) mg/dL Ur Leukocyte Esterase Negative (Negative) Urine Microscopic RBC 3-5 H (0-3) per hpf Ur Squamous Epith Cells Many H (None-Few) per lpf Urine Bacteria None Seen (None-Few) per hpf Hyaline Casts None Seen (None-Few) per lpf Ur Culture Indicated? NO (NO) Exam - Constitutional Vitals: Temp Pulse Resp BP Pulse Ox 97.7 F 65 17 138/78 96 08/22/16 11:37 08/22/16 11:37 08/22/16 11:37 08/22/16 11:37 08/22/16 11:37 General appearance: average body habitus, cooperative, no acute distress - Head Head exam: Present: atraumatic, normal inspection, normocephalic - Eye Eye exam: Present: EOMI, normal appearance, PERRL Pupils: Present: normal accommodation - ENT ENT exam: Present: mucous membranes moist - Neck Neck exam: Present: full ROM, normal inspection. Absent: lymphadenopathy, meningismus - Respiratory Respiratory exam: Present: CTAB. Absent: rales, respiratory distress, rhonchi, wheezes - Cardiovascular Cardiovascular exam: Present: RRR, +S1, +S2 - GI/Abdominal GI/Abdominal exam: Present: normal bowel sounds, soft. Absent: distended, tenderness - Extremities Exam Extremities exam: Present: normal inspection. Absent: joint swelling, pedal edema, tenderness - Neurological Exam Neurological exam: Present: alert, oriented X3, no focal deficits - Psychiatric Psychiatric exam: Present: normal affect, normal mood - Skin Skin exam: Present: dry, intact, normal color, warm - Additional findings Additional findings: EPIV noted to the RUE with transparent dressing C/D/I. Consult Discharge Plan - Plan Instructions: Oxycodone/Acetaminophen (By mouth), Omeprazole (By mouth) Additional Instructions: With infectious disease in 1-2 weeks Referrals: Jesika Sagastume [Primary Care Provider] - 08/29/16 10:00 am Evangelina Iyer MD [Partnered Physician] - 09/02/16 1:00 pm Prescriptions: OxyCODONE/APAP 5/325 [Percocet 5/325 MG] 1 each PO Q4HR PRN #14 tablet PRN Reason: Moderate Pain Omeprazole 20 mg PO DAILY #30 tablet.dr - Attending Attestation I examined this patient and my medical decision-making was reviewed with the CLEAN UP PERSON/PA/Advanced Practice Nurse/Resident Physician. I agree with the documented findings, disposition and treatment plan as described except to the extent set forth below. Will continue doxycycline until western blot for lyme is back, just incase it was a false positive.
[2016-08-22 15:26] VITALS: BP 129/83
--- NOTE | 2016-08-22 16:39 | Physician Discharge Referral ---
Home Health/Hosp Referral Info Transfer to: Home Health - Diagnosis (1) Tick borne fever Priority: Primary Status: Acute (2) Lyme disease Priority: Secondary Status: Acute (3) Meningitis Priority: Secondary Status: Acute (4) Headache Priority: Secondary Status: Acute (5) Arthralgia Priority: Secondary Status: Acute (6) Chest tightness Priority: Secondary Status: Acute - Respiratory Orders Smoking Cessation: Smoking cessation has been advised. For more information, call the [place] Tobacco Quit Line at 9-979-EGAG-NOW. - Diet/Nutrition Diet/Nutrition Orders: Regular - Services Needed Following services are medically necessary services: Home Infusion Home Care Orders: CBC, CMP in 1 week - Transfer Medications Prescriptions: OxyCODONE/APAP 5/325 [Percocet 5/325 MG] 1 each PO Q4HR PRN #14 tablet PRN Reason: Moderate Pain Omeprazole 20 mg PO DAILY #30 tablet.dr Ayala Medications: Acetaminophen [Tylenol] 1,000 mg PO BID PRN 08/19/16 [History] Ibuprofen [Motrin] 800 mg PO TID PRN 08/19/16 [History] Doxycycline 100 mg PO BID #34 08/22/16 [Rx] Omeprazole 20 mg PO DAILY #30 tablet. 08/22/16 [Rx] OxyCODONE/APAP 5/325 [Percocet 5/325 MG] 1 each PO Q4HR PRN #14 tablet 08/22/16 [Rx] Allergies/Adverse Reactions: Allergies No Known Allergies Allergy (Verified 08/19/16 17:57) Certification: Further, I certify that my clinical findings support that this patient is homebound (i.e. absences from home require considerable and taxing effort and are for medical reasons or muslim services or infrequently or short duration when for other reasons) because: Homebound Reason: Patient requires assistance of a person or device to safely leave home (Patient requiring home IV antibiotic therapy) Attestation: My signature below is to certify that this patient is under my care and that I, or nurse practitioner, or a physician's orthopedic physician assistant working with me, has a face-to -face encounter with this patient.
--- NOTE | 2016-08-22 17:30 | Infectious Disease Progress No ---
Date of Encounter: 08/21/16 Time of Encounter: 17:28 - Assessment and Plan (1) Lyme disease Current Visit: Yes Status: Acute Early, disseminated based on clinical picture. Lyme antibody positive. Western blot test pending. EKG completed and interpreted by cardiology as NSR. Has been on oral doxycycline while hospitalized and has noticed a huge improvement in symptoms. Discontinue doxycyline. Start Rocephin 2 grams IV daily. EPIV placed 08/22/16. Duration of treatment depends on the clinical picture, but likely 14 days. Treat through 09/05/16. Get labs in 1 week: CBC, CMP. Weekly EPIV care per protocol. food services manager consulted for home health setup. Follow up with ID 09/02/16 at 1300. (2) Tick borne fever Current Visit: Yes Status: Acute Per patient history, tick removed from the left axilla 2-3 weeks ago. The patient has been afebrile since admission, but reports fever of 104 at home. (3) Meningitis Current Visit: Yes Status: Acute Status post LP. TNC 10 with 42% neutrophils and 42% lymphocytes. Glucose and protein normal. Likely secondary to Lyme. Continue supportive care. (4) Headache Current Visit: Yes Status: Acute Secondary to aseptic meningitis. Continue supportive care. Qualifiers: Headache type: unspecified Headache chronicity pattern: acute headache Intractability: intractable Qualified Code(s): R51 - Headache (5) Arthralgia Current Visit: Yes Status: Acute Qualifiers: Joint pain location: unspecified Qualified Code(s): M25.50 - Pain in unspecified joint (6) Chest tightness Current Visit: Yes Status: Acute - Subjective Interval history: Patient seen and examined. Appears to be doing much better clinically. Continues to have pain but significantly improved. Was able to eat. Lyme Test came back positive for EIA. Western blot is pending. Rest of the review of systems unremarkable. Infect Dis PN-Objective Data - Labs CBC & Chem 7: 08/21/16 05:33 08/21/16 05:33 Cultures: Serology 08/20/16 Range/Units 10:30 Urine Color Yellow (Yellow) Urine Clarity Clear (Clear) Urine pH 5.5 (5.0-8.0) pH Units Ur Specific [place] 1.029 H (1.010-1.025) Urine Protein Negative (Neg-Trace) mg/dL Urine Glucose (UA) Normal (Normal) mg/dL Urine Ketones Negative (Negative) mg/dL Urine Blood Negative (Negative) Urine Nitrite Negative (Negative) Urine Bilirubin Negative (Negative) Urine Urobilinogen Normal (Normal) mg/dL Ur Leukocyte Esterase Negative (Negative) Urine Microscopic RBC 3-5 H (0-3) per hpf Ur Squamous Epith Cells Many H (None-Few) per lpf Urine Bacteria None Seen (None-Few) per hpf Hyaline Casts None Seen (None-Few) per lpf Ur Culture Indicated? NO (NO) Exam - Constitutional Vitals: Temp Pulse Resp BP Pulse Ox 98.0 F 62 17 129/83 94 08/22/16 15:25 08/22/16 15:25 08/22/16 15:25 08/22/16 15:25 08/22/16 15:25 General appearance: no acute distress, no febrile - Head Head exam: Present: atraumatic, normocephalic - Neck Neck exam: Absent: meningismus - Respiratory Respiratory exam: Present: CTAB - Cardiovascular Cardiovascular exam: Present: RRR, +S1, +S2 - GI/Abdominal GI/Abdominal exam: Present: normal bowel sounds, soft. Absent: tenderness - Extremities Exam Extremities exam: Present: full ROM. Absent: normal inspection - Neurological Exam Neurological exam: Present: no focal deficits Consult Discharge Plan - Plan Additional Instructions: With infectious disease in 1-2 weeks Referrals: Jesika Sagastume [Primary Care Provider] - 08/29/16 10:00 am Evangelina Iyer MD [Partnered Physician] - 09/02/16 1:00 pm Prescriptions: OxyCODONE/APAP 5/325 [Percocet 5/325 MG] 1 each PO Q4HR PRN #14 tablet PRN Reason: Moderate Pain Omeprazole 20 mg PO DAILY #30 tablet.
[2016-08-23 07:19] LABS: Anaplasma phagocytophilum IgG <1:80 (<1:80); Anaplasma phagocytophilum IgM < 1:16 (< 1:16)
[2016-08-23 07:21] LABS: ANA IgG by ELISA NONE DETECTED (None Detected)
== END 2016-08-22 18:15 | disposition home or self-care (01) | DRG 869 ==
LOC: EMEROO 17:55 → 3BNU 17:55 → SUATTDRO 23:58
PROVIDERS: ADMIT Internal Medicine; ATTEND Internal Medicine